=== PATIENT | male | born 1940 | race Caucasian/White ===

== ENCOUNTER 2017-03-09 08:20 | Day surgery (SDC) | payer MEDICARE, BC ==
[~2017-03-09] VITALS: Ht 188 cm; Wt 90.3 kg
--- NOTE | ~2017-03-09 | EGD ---
EGD REPORT [facility] [address] [address] NAME: KAREN GILL : [birth year] STATUS : REG [facility]#: [id number] AGE: 76 ADM/REG DATE : 03/09/17 MR#: [id number] REPORT SERV DATE: 03/09/17 DICTATED BY: KRISTEN POLANCO DATE: 03/09/17 REPORT STATUS : Draft TRANSCRIBED BY: [facility] DATE: 03/09/17 [facility] Center Patient Name: Karen Gill Date of : 1940 Attending MD: KRISTEN POLANCO MD Procedure Date No Time: 03/09/2017 Procedure: Colonoscopy Indications: High risk colon cancer surveillance: Personal history of colonic polyps Referring MD: FARHAN CEDENO Medicines: General Anesthesia Complications: No immediate complications. Procedure: Pre-Anesthesia Assessment: - ASA Grade Assessment: III - A patient with severe systemic disease. After I obtained informed consent, the scope was passed under direct vision. Throughout the procedure, the patient's blood pressure, pulse, and oxygen saturations were monitored continuously. The PCF [id number] was introduced through the anus and advanced to the cecum, identified by appendiceal orifice and ileocecal valve. The colonoscopy was somewhat difficult due to significant looping and a tortuous colon. The patient tolerated the procedure. The quality of the bowel preparation was adequate to identify polyps. Findings: The perianal and digital rectal examinations were normal. A few medium-mouthed diverticula were found in the sigmoid colon. Internal hemorrhoids were found during endoscopy and were mild. Impression: - Diverticulosis in the sigmoid colon. - Internal hemorrhoids. Recommendation: - Repeat colonoscopy in 5 years for surveillance. Procedure Code(s): --- Professional --- 03787, Colonoscopy, flexible, proximal to splenic flexure; diagnostic, with or without collection of specimen(s) by brushing or washing, with or without colon decompression (separate procedure) Diagnosis Code(s): --- Professional --- K64.8, Other hemorrhoids K57.30, Diverticulosis of large intestine without EGD REPORT [facility] [address] [place] [address] [place] [address] NAME: KAREN GILL : 44 STATUS : REG [facility] PAT#: [id number] AGE: 76 ADM/REG DATE : 03/09/17 MR#: [id number] REPORT SERV DATE: 03/09/17 DICTATED BY: KRISTEN POLANCO. DATE: 03/09/17 REPORT STATUS : Draft TRANSCRIBED BY: [employer] DATE: 03/09/17 perforation or abscess without bleeding Z86.010, Personal history of colonic polyps CPT copyright 2013 [employer]. All rights reserved. The codes documented in this report are preliminary and upon expansion envelope maker hand review may be revised to meet current compliance requirements. KRISTEN POLANCO MD 03/09/2017 11:14 AM This report has been signed electronically. Number of Addenda: 0 Note Initiated On: 03/09/2017 10:29 AM Scope Withdrawal Time 0 hours 6 minutes 55 [address] [place], [place] [address] [id number]
[~2017-03-09 08:20] MED LIST: AMITIZA24 PO; APRES25 PO; APRES50 PO; ASA5GR PO; ASAB PO; ASABAYER PO; ATEN50 PO; B1100 PO; BIOTIN; BUM1 PO; C1 PO; CARDU4 PO; CARDURA XL4 MG PO; CAT1 PO; CAT2 PO; CATAPRES3 TOP; CENTRUM SILVER PO; CENTRUM TAB1 TAB PO; CLARIT10 PO; DEMA100 PO; DIOVAN HCT160 MG/25 PO; DIOVAN HCT320 MG/25 PO; FERROUS SULF325 M1 PO; FESO4 PO; FISH OIL1200 MG PO; FISH-EPA1000 MG PO; FLOMAX4 PO; HALF81 PO; HYDRALAZINE100 MG PO; HYZAAR 100/25 T1 TAB PO; IRON325 MG PO; JALYN 0.5-0.41 EACH PO; JANTOVEN1 MG PO; JANTOVEN5 MG PO; JANTOVEN6 MG PO; JAYLN PO; L40 PO; LEVAQUIN750 MG PO; LEVOTHROID150 MCG PO; LEVOTHYROXIN112 MCG PO; LEVOTHYROXIN125 MCG PO; LEVOTHYROXIN150 MCG PO; LEVOXYL100 MCG PO; MIRALAX POWDER1 PKT PO; MIRALAXPKT OR; MIRALAXPKT PO; MUCINEX600 MG PO; MULTI VITAMIN; MULTIPLE VIT PO; MULTIVIT/MIN PO; NATURA2 OP; NOVLOGPUMP SC; NOVREGPUMP SC; OMNICEF300 PO; PCET PO; PLAVIX PO; PR25R PR; PRILO PO; PROCRIT10 SC; PROCRIT2 SC; PROCRIT40 IV; PROPECIA1 MG PO; REFRESH PLUS0.5 % OPH; REG PO; REG5 PO; SYN.15 PO; THERAPEUTIC PO; TUMSROLL PO; TYLENOL ARTH650 MG PO; VIT C; VIT E; VITAMI13; VITAMIN C100 MG PO; VITAMIN D400 UNI1 PO; ZITHROMAX500 MG PO; ZOCOR20 PO; ZOCOR40 PO; ZOFRAN4 MG/5 ML PO; ZOFRAN4 PO; [UNRECOGNIZED DRUG - OTHER]; [UNRECOGNIZED DRUG - OTHER] PO; [UNRECOGNIZED DRUG - OTHER] PO; [UNRECOGNIZED DRUG - OTHER] PO; [UNRECOGNIZED DRUG - OTHER] PO; [UNRECOGNIZED DRUG - OTHER] PO; [UNRECOGNIZED DRUG - REMARK]
[2017-03-09 08:48] LABS: INTERNATIONAL NORMAL RATI 1.5 UNITS (-); PROTIME (NOT ORD) 18.4 SEC (12.0-14.5)
[2017-03-09 08:53] LABS: BUN (BLOOD UREA NITROGEN) 32 MG/DL (6-23); CALCIUM, SERUM 8.3 MG/DL (8.5-10.4); CHLORIDE, SERUM 100 MMOL/L (96-112); CO2 (CARBON DIOXIDE) 24 MMOL/L (24-34); CREATININE 5.51 MG/DL (0.70-1.30); GFR AFRICAN AMERICAN 11 ML/MIN (>=60); GFR NON AFRICAN AMERICAN 9 ML/MIN (>=60); GLUCOSE, SERUM 216 MG/DL (60-99); POTASSIUM, SERUM 3.8 MMOL/L (3.5-5.3); SODIUM, SERUM 138 MMOL/L (135-148)
[2017-03-14] MEDS ORDERED: LIPITOR40 PO (14:59)
[2017-03-14] MEDS ORDERED: CLARIT10 PO (15:02)
[2017-03-14] MEDS ORDERED: REG5 PO (15:05)
[2017-03-14] MEDS ORDERED: LOP50 PO (15:06)
[2017-03-14] MEDS ORDERED: PROTONIX PO (15:07)
[2017-03-14] MEDS ORDERED: COUMADIN6 MG (15:10)
== END 2017-03-09 15:54 | disposition home or self-care (01) ==
LOC: DMU 08:20
PROVIDERS: Anesthesiology; Internal Medicine Gastroenterology
PROC: 0DJD8ZZ Inspection of Lower Intestinal Tract, Via Natural or Artificial Opening Endoscopic (ICD-10-PCS; principal; 2017-03-09 10:00)
DX: Z12.11 Encounter for screening for malignant neoplasm of colon (principal); K57.30 Diverticulosis of large intestine without perforation or abscess without bleeding; K64.8 Other hemorrhoids; I25.10 Atherosclerotic heart disease of native coronary artery without angina pectoris; I48.0 Paroxysmal atrial fibrillation; E11.22 Type 2 diabetes mellitus with diabetic chronic kidney disease; N18.6 End stage renal disease; E03.9 Hypothyroidism, unspecified; I25.2 Old myocardial infarction; K21.9 Gastro-esophageal reflux disease without esophagitis; Z86.73 Personal history of transient ischemic attack (TIA), and cerebral infarction without residual deficits; Z95.5 Presence of coronary angioplasty implant and graft; Z88.8 Allergy status to other drugs, medicaments and biological substances; Z79.01 Long term (current) use of anticoagulants; Z86.010 Personal history of colon polyps; Z79.899 Other long term (current) drug therapy; Z96.1 Presence of intraocular lens; Z98.41 Cataract extraction status, right eye; Z98.42 Cataract extraction status, left eye; Z90.49 Acquired absence of other specified parts of digestive tract; Z90.89 Acquired absence of other organs; Z98.890 Other specified postprocedural states
CPT/HCPCS: 80048; 82962; 85610; 93005; J0330; J2250; J2370; J3010